=== PATIENT | female | born 1990 | race Caucasian/White ===

== ENCOUNTER 2019-10-13 05:26 | Inpatient (IN) | payer BC ==
[2019-10-13] MEDS ORDERED: Misoprostol 400 MCG (4 X 100 MCG TAB) RECTAL PRN ×2 (09:18→09:23)
[2019-10-13] MEDS ORDERED: Sodium Chloride 0.9% 10 ML Syringe FLUSH PRN ×2 (09:18→09:26)
[2019-10-13] MEDS ORDERED: Acetaminophen 325 MG Tab PO PRN ×2 (09:18→09:23)
[2019-10-13] MEDS ORDERED: Lidocaine 1% 30 ML SDV INJECT PRN (09:18)
[2019-10-13] MEDS ORDERED: Carboprost Tromethamine 250 MCG/1 ML Amp IM PRN ×2 (09:18→09:23)
[2019-10-13] MEDS ORDERED: Ondansetron 4 MG/2 ML SDV IV PRN (09:18)
[2019-10-13] MEDS ORDERED: Methylergonovine 0.2 MG/1 ML Amp IM PRN (09:18)
[2019-10-13] MEDS ORDERED: Lactated Ringers 500 ML IV ONE (09:18)
[2019-10-13] MEDS ORDERED: Tranexamic Acid 1,000 MG in Sodium Chloride 0.9% 100 ML IV PRN ×2 (09:18→09:23)
[2019-10-13] MEDS ORDERED: Benzocaine/Menthol 20%-0.5% Spray 56 GM Canister TOP PRN (09:23)
[2019-10-13] MEDS ORDERED: Docusate Sodium 100 MG Cap PO PRN (09:23)
[2019-10-13] MEDS ORDERED: Simethicone 80 MG Tab.Chew PO PRN (09:23)
[2019-10-13] MEDS ORDERED: Zolpidem 5 MG Tab PO PRN (09:23)
[2019-10-13] MEDS ORDERED: Oxytocin 10 Units/1 ML SDV IM PRN (09:23)
[2019-10-13] MEDS: Lactated Ringers 1,000 ML IV SCH ×2 (10:05→11:50)
[2019-10-13] MEDS ORDERED: fentaNYL 100 MCG/2 ML SDV ONE (11:37)
[2019-10-13] MEDS ORDERED: EPINEPHrine 1 MG/1 ML Amp ONE (11:38)
[2019-10-13] MEDS ORDERED: Sodium Bicarbonate 4.2% 2.5 MEQ/5 ML SDV ONE (11:38)
--- NOTE | 2019-10-13 11:53 | HP ---
CHIEF COMPLAINT: "I think I am in labor. " HISTORY OF PRESENT ILLNESS: Ms. Piña is a 29-year-old 4, para 2-1-0- 3 female; last menstrual period unsure; EDC 10/23/2019; EGA 38-4/7th weeks gestation which is consistent with a 9-week ultrasound. She reported to Labor and Delivery with increasing force and frequency of contractions. On admission, she was noted to be 3 cm dilated and then after being watched, she did change to 4 to 5 cm, 70% effaced, -2 station. She was then taken to Labor and Delivery for admission and artificial rupture of membranes occurred with clear fluid noted. She had not had any issues in the . She denies any nausea, vomiting, or diarrhea. No fever or chills. No hematochezia, hematemesis, or hematuria. No dysuria, frequency, or urgency with urination. No leg pain, leg edema, or severe abdominal pain. She is having regular contractions every 4 to 5 minutes apart. PAST MEDICAL HISTORY: Positive for cholecystitis, previous delivery. She denies any heart disease, hypertension, diabetes, seizure disorder, thyroid disorder, thromboembolic disease, breast lesions, lung issues, kidney disease, or history of blood transfusions. FAMILY HISTORY: Positive for dementia, twins. No hypertension, heart disease, diabetes, seizure disorder, thyroid disorder, or lung problems. SOCIAL HISTORY: The patient is single. She has a significant other who is involved. She has worked for the [employer] She denies any tobacco use, alcohol use, or illicit drug use. She feels safe at home. No domestic violence issues. MEDICATIONS: vitamins with iron. OBSTETRICAL HISTORY: On 09/10/2009, delivered a 7 pounds 4 ounces female infant via normal spontaneous vaginal delivery at 41 weeks gestation. On 07/05/2011, delivery of 5 pounds 12 ounces female via normal spontaneous vaginal delivery at 36 weeks gestation. On 08/14/2018, delivery of an 8 pounds 6 ounces male via normal spontaneous vaginal delivery at 40-4/7 weeks gestation. PAST SURGICAL HISTORY: None. ALLERGIES: No known drug allergies. REVIEW OF SYSTEMS: All pertinent positive and negative review of systems per HPI. All other systems were reviewed negative. A 10-point review of systems discussed with the patient. She has no issues. LABORATORY DATA: Blood type A-negative. Antibody screen negative. Rubella immune. RPR nonreactive. Hepatitis B surface antigen nonreactive. HIV nonreactive. TSH normal. Hepatitis C antibody nonreactive. Group B strep vaginal culture negative. OBJECTIVE: General: Well-developed, well-nourished female in no acute distress. Vital Signs: Stable. Afebrile. HEENT: Unremarkable. Neck: Supple, without adenopathy. No thyromegaly. Lungs: Clear to auscultation. No wheezing, rhonchi, or rales noted. Cardiovascular: Regular rate and rhythm without murmurs. Abdomen: Soft, gravid, and nontender. Fundal height 38 cm. heart tones 130s to 140s. Contractions every 4 to 5 minutes apart. Category 1 strip. Back: No CVA tenderness. : Cervix 4 to 5 cm dilated, 70% effaced, -2 station, vertex presentation. Bulging bag of reyes. Artificial rupture of membranes occurred with clear fluid noted. Extremities: No edema, erythema, or tenderness noted. No clonus. DTRs are 2+/4 in all areas. ASSESSMENT: 1. 38-4/7 weeks intrauterine . 2. Active labor. 3. Artificial rupture membranes with clear fluid. 4. A-negative blood type. 5. History of cholecystitis in . PLAN: 1. Expect vaginal delivery. 2. Patient desires intrathecal anesthesia. 3. All questions answered. [facility] /[id number] MTDD
--- NOTE | 2019-10-13 11:57 | PCM.PNLD ---
Labor Progress Note - VS & Meds Vital Signs: Last Vital Signs Temp 98.8 F 10/13/19 07:50 Pulse 87 10/13/19 07:50 Resp 16 10/13/19 07:50 BP 129/75 10/13/19 07:50 Pulse Ox 95 10/13/19 07:50 Active Medications: Current Medications Acetaminophen (Tylenol) 650 mg PO Q4H PRN PRN Reason: Pain (Mild 1-3) and fever Acetaminophen (Tylenol) 650 mg PO Q6H PRN PRN Reason: mild pain or fever Benzocaine/Menthol (Dermoplast Pain Relief [place]) 0 gm TOP Q4H PRN PRN Reason: Perineal comfort measures Carboprost Tromethamine (Hemabate Ds) 250 mcg IM ASDIRECTED PRN PRN Reason: HEMORRHAGE Carboprost Tromethamine (Hemabate Ds) 250 mcg IM ASDIRECTED PRN PRN Reason: Excessive vaginal bleeding Docusate Sodium (Colace) 100 mg PO BID PRN PRN Reason: Constipation Ferrous Sulfate (Ferrous Sulfate) 325 mg PO WITHBREAKFAST OMAR Lactated Ringer's (Ringers, Lactated) 500 mls @ 125 mls/hr IV .BOLUS ONE Stop: 10/13/19 13:17 Lactated Ringer's (Ringers, Lactated) 1,000 mls @ 125 mls/hr IV ASDIRECTED OMAR Last Admin: 10/13/19 10:05 Dose: 125 mls/hr Oxytocin/Sodium Chloride (Pitocin In Ns 30 Unit/500 Ml) 30 unit in 500 mls @ 2 mls/hr IV TITRATE OMAR; Protocol Tranexamic Acid 1,000 mg/ (Sodium Chloride) 110 mls @ 660 mls/hr IV ONETIME PRN PRN Reason: Bleeding Ibuprofen (Motrin) 800 mg PO Q8H PRN PRN Reason: Mild Pain or Fever Lidocaine HCl (Xylocaine-Mpf 1%) 30 ml INJECT ASDIRECTED PRN PRN Reason: Perineal Repair Methylergonovine Maleate (Methergine) 0.2 mg IM ASDIRECTED PRN PRN Reason: Hemorrhage Misoprostol (Cytotec) 800 mcg RECTAL ASDIRECTED PRN PRN Reason: Hemorrhage Misoprostol (Cytotec) 800 mcg RECTAL ONETIME PRN PRN Reason: Hemorrhage Ondansetron HCl (Zofran) 4 mg IV Q4H PRN PRN Reason: Nausea/Vomiting Oxytocin (Pitocin) 10 unit IM ONETIME PRN PRN Reason: Bleeding Prenat Multivit/[place]/Iron/Folic Ac ( Plus Iron) 1 each PO DAILY OMAR Prenat Multivit/[place]/Iron/Folic Ac ( Plus Iron) 1 each PO DAILY OMAR Simethicone (Simethicone) 80 mg PO Q4H PRN PRN Reason: Gas Sodium Chloride (Saline Flush) 10 ml FLUSH ASDIRECTED PRN PRN Reason: Keep Vein Open Zolpidem Tartrate (Ambien) 5 mg PO BEDTIME PRN PRN Reason: Insomnia Discontinued Medications Epinephrine HCl (Adrenalin) Confirm Administered Dose 1 mg .ROUTE .STK-MED ONE Stop: 10/13/19 11:39 Fentanyl (Sublimaze) Confirm Administered Dose 100 mcg .ROUTE .STK-MED ONE Stop: 10/13/19 11:38 Ferrous Sulfate (Ferrous Sulfate) 325 mg PO DAILY [facility] Tranexamic Acid 1,000 mg/ (Sodium Chloride) 110 mls @ 660 mls/hr IV ONETIME PRN PRN Reason: Bleeding Sodium Bicarbonate (Sodium Bicarbonate 4.2%) Confirm Administered Dose 2.5 meq .ROUTE .STK-MED ONE Stop: 10/13/19 11:39 Sodium Chloride (Saline Flush) 10 ml FLUSH ASDIRECTED PRN PRN Reason: Keep Vein Open Sufentanil Citrate (Sufenta) Confirm Administered Dose 50 mcg .ROUTE .STK-MED ONE Stop: 10/13/19 11:39 - Uterine Contractions Uterine Monitoring Mode: IUPC Contraction Frequency (min): 5-6 Contraction Duration (sec): 90-120 Contraction Intensity: Moderate Uterine Resting Tone: Soft - Monitoring Monitor Mode: Spiral Electrode Heart Rate (FHR) Baseline: 140 (Variable decelerations) Heart Rate (FHR) Variability: Moderate (6-25 bmp) Accelerations: Present, 15x15 Decelerations: Variable, Recurrent (>50% x 20 min) - Vaginal Exam Dilation (cm): 5 Effacement (Percent): 80 Station: -2 Cervical Position: Midposition (IUPC placed and starting Amnioinfusion with 400 mL bolus of normal saline then 100 mL per hour maintainence) Sterile Vaginal Exam Performed By: Romario Mattie - Labor Progress (Free Text) Labor Progress: Patient tolerating contractions getting stronger and more uncomfortable. Desires intrathecal. Patient having FHT's in 140's with variable decel's. No nausea, vomiting or diarrhea. Amnioinfusion with normal saline to be given 400 mL bolus then 100mL per hour maintainence. Pitocin IV augmentation to be started. All questions answered.
--- NOTE | 2019-10-13 12:03 | PCM.SN ---
- Free Text/Narrative Note: Intrathecal, sitting position, sterile prep and drape. 1% lidocaine w bicarb for skinwheal to L2 L3 interspace, introducer, 24 ga pencan x 1. Pos CSF, neg heme, neg parasthesia. 15 mcg pf sufenta, 35 mcg pf fentanyl, 0.4 ml pf ns, 0.1 ml pf 1:1000 epi, and 6 mg of o.75% pf bupivacaine injected after CSF aspiration. Pt to L lateral position. Procedure time 1130 to 1200
[2019-10-13] MEDS: Oxytocin/Normal Saline 30 UNIT/500 ML BAG IV SCH ×2 (12:30→13:55)
--- NOTE | 2019-10-13 12:42 | PCM.PNLD ---
Labor Progress Note - VS & Meds Vital Signs: Last Vital Signs Temp 98.8 F 10/13/19 07:50 Pulse 87 10/13/19 07:50 Resp 16 10/13/19 07:50 BP 129/75 10/13/19 07:50 Pulse Ox 95 10/13/19 07:50 Active Medications: Current Medications Acetaminophen (Tylenol) 650 mg PO Q4H PRN PRN Reason: Pain (Mild 1-3) and fever Acetaminophen (Tylenol) 650 mg PO Q6H PRN PRN Reason: mild pain or fever Benzocaine/Menthol (Dermoplast Pain Relief [place]) 0 gm TOP Q4H PRN PRN Reason: Perineal comfort measures Carboprost Tromethamine (Hemabate Ds) 250 mcg IM ASDIRECTED PRN PRN Reason: HEMORRHAGE Carboprost Tromethamine (Hemabate Ds) 250 mcg IM ASDIRECTED PRN PRN Reason: Excessive vaginal bleeding Docusate Sodium (Colace) 100 mg PO BID PRN PRN Reason: Constipation Ferrous Sulfate (Ferrous Sulfate) 325 mg PO WITHBREAKFAST OMAR Lactated Ringer's (Ringers, Lactated) 500 mls @ 125 mls/hr IV .BOLUS ONE Stop: 10/13/19 13:17 Lactated Ringer's (Ringers, Lactated) 1,000 mls @ 125 mls/hr IV ASDIRECTED OMAR Last Admin: 10/13/19 10:05 Dose: 125 mls/hr Oxytocin/Sodium Chloride (Pitocin In Ns 30 Unit/500 Ml) 30 unit in 500 mls @ 2 mls/hr IV TITRATE OMAR; Protocol Tranexamic Acid 1,000 mg/ (Sodium Chloride) 110 mls @ 660 mls/hr IV ONETIME PRN PRN Reason: Bleeding Ibuprofen (Motrin) 800 mg PO Q8H PRN PRN Reason: Mild Pain or Fever Lidocaine HCl (Xylocaine-Mpf 1%) 30 ml INJECT ASDIRECTED PRN PRN Reason: Perineal Repair Methylergonovine Maleate (Methergine) 0.2 mg IM ASDIRECTED PRN PRN Reason: Hemorrhage Misoprostol (Cytotec) 800 mcg RECTAL ASDIRECTED PRN PRN Reason: Hemorrhage Misoprostol (Cytotec) 800 mcg RECTAL ONETIME PRN PRN Reason: Hemorrhage Ondansetron HCl (Zofran) 4 mg IV Q4H PRN PRN Reason: Nausea/Vomiting Oxytocin (Pitocin) 10 unit IM ONETIME PRN PRN Reason: Bleeding Prenat Multivit/[place]/Iron/Folic Ac ( Plus Iron) 1 each PO DAILY OMAR Prenat Multivit/[place]/Iron/Folic Ac ( Plus Iron) 1 each PO DAILY OMAR Simethicone (Simethicone) 80 mg PO Q4H PRN PRN Reason: Gas Sodium Chloride (Saline Flush) 10 ml FLUSH ASDIRECTED PRN PRN Reason: Keep Vein Open Zolpidem Tartrate (Ambien) 5 mg PO BEDTIME PRN PRN Reason: Insomnia Discontinued Medications Epinephrine HCl (Adrenalin) Confirm Administered Dose 1 mg .ROUTE .STK-MED ONE Stop: 10/13/19 11:39 Fentanyl (Sublimaze) Confirm Administered Dose 100 mcg .ROUTE .STK-MED ONE Stop: 10/13/19 11:38 Ferrous Sulfate (Ferrous Sulfate) 325 mg PO DAILY [facility] Tranexamic Acid 1,000 mg/ (Sodium Chloride) 110 mls @ 660 mls/hr IV ONETIME PRN PRN Reason: Bleeding Sodium Bicarbonate (Sodium Bicarbonate 4.2%) Confirm Administered Dose 2.5 meq .ROUTE .STK-MED ONE Stop: 10/13/19 11:39 Sodium Chloride (Saline Flush) 10 ml FLUSH ASDIRECTED PRN PRN Reason: Keep Vein Open Sufentanil Citrate (Sufenta) Confirm Administered Dose 50 mcg .ROUTE .STK-MED ONE Stop: 10/13/19 11:39 - Uterine Contractions Uterine Monitoring Mode: IUPC Contraction Frequency (min): 5-6 Contraction Duration (sec): 90-120 Contraction Intensity: Moderate Uterine Resting Tone: Soft - Monitoring Monitor Mode: Spiral Electrode Heart Rate (FHR) Baseline: 140 (Variable decelerations) Heart Rate (FHR) Variability: Moderate (6-25 bmp) Accelerations: Present, 15x15 Decelerations: Variable, Prolonged (>2x10 min) Strip Review: Category II - Vaginal Exam Dilation (cm): 5 Effacement (Percent): 80 Station: -2 Cervical Position: Midposition (IUPC placed and starting Amnioinfusion with 400 mL bolus of normal saline then 100 mL per hour maintainence) Sterile Vaginal Exam Performed By: Wilfredo Phelps - Labor Progress (Free Text) Labor Progress: Patient had 4 1/2 minute prolonged deceleration and recovered with Oxygen, Fluids, changing position, and scalp stimulation. No nausea vomiting, diarrhea. Comfortable with Intrathecal anesthesia. VSS Afebrile Cervix- 5 cm/80%/-2 FSE and IUPC in place. Normal saline amnioinfusion running 100 mL per hour. Continue watching closely IV Pitocin for augmentation once hearttones back to Category 1 strip.
--- NOTE | 2019-10-13 13:26 | PCM.OPNOTE ---
- General Post-Op/Procedure Note Date of Surgery/Procedure: 10/13/19 (38 4/7 week IUP) Operative Procedure(s): Low Vacuum Assisted Vaginal Delivery Findings: Vaginal Delivery OA of a Viable femaleinfant Weight- 7lbs 10 oz Length- 20 1/2 's 3 at 1 min and 8 at 5 min. Tight short nuchal cord with 3 vessels. Intact perineum Pre Op Diagnosis: 38 4/7 week IUP. Active labor. Artificial rupture of membranes. Pitocin augmentation. intolerance to labor Post-Op Diagnosis: 38 4/7 week IUP. Active labor. Artificial rupture of membranes. Pitocin augmentation. intolerance to labor. Low vacuum assisted vaginal delivery. Tight short nuchal cord X 1. Viable female over intact perineum Anesthesia Technique: Regional Block (Intrathecal) Primary Surgeon: Wilfredo Phelps Anesthesia Provider: Khanh Oconnell EBL in mLs: 300 Condition: Good Free Text/Narrative:: Patient is a 29 y.o. 4 Para 2-1-0-3 female at 38 4/7 weeks gestation who reported to labor and delivery with increasing force and frequency of contractions. She was 3 cm then once at 4-5 cm she was admitted. AROM Clear fluid, Intrathecal anesthesia for pain. Recurrent variable decelerations so FSE, IUPC and Normal saline amnioinfusion started. She changed to 8 cm and had prolonged decelerations down to the 50's to 70's at a + 2 station so a [place]wi vacuum was placed. She pushed twice with one pull of the vacuum the head was OP and restituted to OA no pop off's the head was delivered over a intact perineum. The cord was short tightly around the neck X 1. The viable female was delivered over an intact perineum. Weight 7 lbs 10 oz, Length- 20 1/2 inches 's- 3 and 8 at 1 and 5 minutes respectively. The cord was cut and the infant handed off to the nurses in attendance then Dr. Lane was present. The patient recovered without issues. Cord blood obtained the placenta delivered by simple expression intact.
[2019-10-13] MEDS: Ibuprofen 800 MG Tab PO PRN (16:28)
[2019-10-14] MEDS: Ibuprofen 800 MG Tab PO PRN ×2 (01:15→08:52)
--- NOTE | 2019-10-14 04:43 | PCM.PNPP ---
- General Info Date of Service: 10/14/19 (PPD # 1 S/P Vacuum assisted vaginal delivery) Functional Status: Reports: Pain Controlled, Tolerating Diet, Ambulating, Urinating - Review of Systems General: Reports: No Symptoms HEENT: Reports: No Symptoms Pulmonary: Reports: No Symptoms Cardiovascular: Reports: No Symptoms Gastrointestinal: Reports: No Symptoms Genitourinary: Reports: No Symptoms Musculoskeletal: Reports: No Symptoms Skin: Reports: No Symptoms Neurological: Reports: No Symptoms Psychiatric: Reports: No Symptoms - General Info Date of Service: 10/14/19 (PPS # 1 S/P Vacuum assisted vaginal delivery) - Patient Data Vital Signs - Most Recent: Last Vital Signs Temp 98.7 F 10/13/19 20:00 Pulse 78 10/13/19 20:00 Resp 16 10/13/19 20:00 BP 114/60 10/13/19 20:00 Pulse Ox 97 10/13/19 12:30 Weight - Most Recent: 213 lb I&O - Last 24 Hours: Intake & Output 10/13/19 10/13/19 10/14/19 14:59 22:59 06:59 Intake Total 1500 1100 Balance 1500 1100 Lab Results - Last 24 Hours: Laboratory Results - last 24 hr 10/13/19 Range/Units 09:28 WBC 9.5 (5.0-10.0) 10^3/uL RBC 3.88 L (4.2-5.4) 10^6/uL Hgb 12.2 (12.0-16.0) g/dL Hct 35.9 L (37.0-47.0) % MCV 92.5 (80-100) fL MCH 31.4 (27.0-34.0) pg MCHC 34.0 (33.0-35.0) g/dL Plt Count 174 D (150-450) 10^3/uL Neut % (Auto) 72.9 (42.2-75.2) % Lymph % (Auto) 20.3 L (20.5-50.1) % [place] % (Auto) 5.9 (2-8) % Eos % (Auto) 0.7 L (1.0-3.0) % Baso % (Auto) 0.2 (0.0-1.0) % Med Orders - Current: Current Medications Acetaminophen (Tylenol) 650 mg PO Q4H PRN PRN Reason: Pain (Mild 1-3) and fever Acetaminophen (Tylenol) 650 mg PO Q6H PRN PRN Reason: mild pain or fever Benzocaine/Menthol (Dermoplast Pain Relief [place]) 0 gm TOP Q4H PRN PRN Reason: Perineal comfort measures Last Admin: 10/13/19 16:29 Dose: 1 spray Carboprost Tromethamine (Hemabate Ds) 250 mcg IM ASDIRECTED PRN PRN Reason: HEMORRHAGE Carboprost Tromethamine (Hemabate Ds) 250 mcg IM ASDIRECTED PRN PRN Reason: Excessive vaginal bleeding Docusate Sodium (Colace) 100 mg PO BID PRN PRN Reason: Constipation Ferrous Sulfate (Ferrous Sulfate) 325 mg PO WITHBREAKFAST [facility] Lactated Ringer's (Ringers, Lactated) 1,000 mls @ 125 mls/hr IV ASDIRECTED OMAR Last Admin: 10/13/19 11:50 Dose: 125 mls/hr Oxytocin/Sodium Chloride (Pitocin In Ns 30 Unit/500 Ml) 30 unit in 500 mls @ 2 mls/hr IV TITRATE [facility]; Protocol Last Titration: 10/13/19 18:45 Dose: 0 mls/hr Tranexamic Acid 1,000 mg/ (Sodium Chloride) 110 mls @ 660 mls/hr IV ONETIME PRN PRN Reason: Bleeding Ibuprofen (Motrin) 800 mg PO Q8H PRN PRN Reason: Mild Pain or Fever Last Admin: 10/14/19 01:15 Dose: 800 mg Lidocaine HCl (Xylocaine-Mpf 1%) 30 ml INJECT ASDIRECTED PRN PRN Reason: Perineal Repair Methylergonovine Maleate (Methergine) 0.2 mg IM ASDIRECTED PRN PRN Reason: Hemorrhage Misoprostol (Cytotec) 800 mcg RECTAL ASDIRECTED PRN PRN Reason: Hemorrhage Misoprostol (Cytotec) 800 mcg RECTAL ONETIME PRN PRN Reason: Hemorrhage Ondansetron HCl (Zofran) 4 mg IV Q4H PRN PRN Reason: Nausea/Vomiting Last Admin: 10/13/19 11:45 Dose: 4 mg Oxytocin (Pitocin) 10 unit IM ONETIME PRN PRN Reason: Bleeding Prenat Multivit/[place]/Iron/Folic Ac ( Plus Iron) 1 each PO DAILY [facility] Prenat Multivit/[place]/Iron/Folic Ac ( Plus Iron) 1 each PO DAILY [facility] Simethicone (Simethicone) 80 mg PO Q4H PRN PRN Reason: Gas Sodium Chloride (Saline Flush) 10 ml FLUSH ASDIRECTED PRN PRN Reason: Keep Vein Open Last Admin: 10/13/19 18:45 Dose: 10 ml Zolpidem Tartrate (Ambien) 5 mg PO BEDTIME PRN PRN Reason: Insomnia Discontinued Medications Epinephrine HCl (Adrenalin) Confirm Administered Dose 1 mg .ROUTE .STK-MED ONE Stop: 10/13/19 11:39 Last Admin: 10/13/19 20:47 Dose: Not Given Fentanyl (Sublimaze) Confirm Administered Dose 100 mcg .ROUTE .STK-MED ONE Stop: 10/13/19 11:38 Last Admin: 10/13/19 20:47 Dose: Not Given Ferrous Sulfate (Ferrous Sulfate) 325 mg PO DAILY [facility] Lactated Ringer's (Ringers, Lactated) 500 mls @ 125 mls/hr IV .BOLUS ONE Stop: 10/13/19 13:17 Last Admin: 10/13/19 20:46 Dose: Not Given Tranexamic Acid 1,000 mg/ (Sodium Chloride) 110 mls @ 660 mls/hr IV ONETIME PRN PRN Reason: Bleeding Sodium Bicarbonate (Sodium Bicarbonate 4.2%) Confirm Administered Dose 2.5 meq .ROUTE .STK-MED ONE Stop: 10/13/19 11:39 Last Admin: 10/13/19 20:47 Dose: Not Given Sodium Chloride (Saline Flush) 10 ml FLUSH ASDIRECTED PRN PRN Reason: Keep Vein Open Sufentanil Citrate (Sufenta) Confirm Administered Dose 50 mcg .ROUTE .STK-MED ONE Stop: 10/13/19 11:39 Last Admin: 10/13/19 20:47 Dose: Not Given - Infant Interaction Disposition, : in Room with Family Interaction: Holding Infant Feeding: Breastfed Infant; Nursed Well Support Person: Significant Other - Recovery Exam Fundal Tone: Firm Fundal Level: 1 Fingerbreadths Above Umbilicus Fundal Placement: Midline Lochia Amount: Small Lochia Color: Rubra/Red Perineum Description: Intact, Minimal Bruising/Swelling Episiotomy/Laceration: None Bladder Status: Voiding Urinary Elimination: Voided - Exam General: Alert, Oriented, Cooperative, No Acute Distress HEENT: Pupils Equal, Pupils Reactive, EOMI, Mucous Membr. Moist/[place] Neck: Supple Lungs: Clear to Auscultation, Normal Respiratory Effort Cardiovascular: Regular Rate, Regular Rhythm, No Murmurs GI/Abdominal Exam: Normal Bowel Sounds, Soft, Non-Tender, No Distention Extremities: Normal Inspection, Normal Range of Motion, Non-Tender, Pedal Edema (1 + edema) Skin: Warm, Dry, Intact Neurological: No New Focal Deficit, Normal Gait, Normal Speech, Normal Tone Psy/Mental Status: Alert, Normal Affect, Normal Mood - Problem List Review Problem List Initiated/Reviewed/Updated: Yes - My Orders Last 24 Hours: My Active Orders 10/13/19 05:47 OB Check [OM.PC] Click To Edit 10/13/19 09:18 Patient Status [ADT] Routine Notify Provider Vital Signs OB [RC] ASDIRECTED POC Labs [RC] ASDIRECTED Up ad Trupti [RC] ASDIRECTED Vital Signs [RC] 08,20 Acetaminophen [Tylenol] 650 mg PO Q4H PRN Carboprost Tromethamine [Hemabate DS] 250 mcg IM ASDIRECTED PRN Lidocaine 1% [Xylocaine-MPF 1%] 30 ml INJECT ASDIRECTED PRN Methylergonovine [Methergine] 0.2 mg IM ASDIRECTED PRN Ondansetron [Zofran] 4 mg IV Q4H PRN miSOPROStoL [Cytotec] 800 mcg RECTAL ASDIRECTED PRN Saline Lock Insert [OM.PC] Routine Resuscitation Status Routine 10/13/19 09:23 Acetaminophen [Tylenol] 650 mg PO Q6H PRN Benzocaine/Menthol [Dermoplast Pain Relief [place]] See Dose Instructions TOP Q4H PRN Carboprost Tromethamine [Hemabate DS] 250 mcg IM ASDIRECTED PRN Docusate Sodium [Colace] 100 mg PO BID PRN Ibuprofen [Motrin] 800 mg PO Q8H PRN Oxytocin [Pitocin] 10 unit IM ONETIME PRN Simethicone 80 mg PO Q4H PRN Tranexamic Acid [Cyklokapron] 1,000 mg Sodium Chloride 0.9% [Normal Saline] 100 ml IV ONETIME Zolpidem [Ambien] 5 mg PO BEDTIME PRN miSOPROStoL [Cytotec] 800 mcg RECTAL ONETIME PRN 10/13/19 09:24 Up ad Trupti [RC] ASDIRECTED Assess Lochia [WOMSER] Per Unit Routine Assess Uterine Involution [WOMSER] Per Unit Routine Breast Pump [WOMSER] Per Unit Routine Ice Therapy [OM.PC] Per Unit Routine Perineal Care [OM.PC] Per Unit Routine Saline Lock Insert [OM.PC] Urgent Sitz Bath [OM.PC] Per Unit Routine 10/13/19 09:26 Sodium Chloride 0.9% [Saline Flush] 10 ml FLUSH ASDIRECTED PRN 10/13/19 09:30 Lactated Ringers [Ringers, Lactated] 1,000 ml IV ASDIRECTED Oxytocin/Normal Saline [Pitocin in NS 30 UNIT/500 ML] 30 unit in 500 ml IV TITRATE 10/14/19 04:37 Ready for Discharge [RC] PER UNIT ROUTINE 10/14/19 05:11 CBC W/O DIFF,HEMOGRAM [HEME] AM 10/14/19 08:00 Ferrous Sulfate 325 mg PO WITHBREAKFAST 10/14/19 09:00 Vit with Ca/FA/Iron [ Plus Iron] 1 each PO DAILY Vit with Ca/FA/Iron [ Plus Iron] 1 each PO DAILY - Assessment Assessment:: PPD # 1 S/P Vacuum assisted vaginal delivery Doing well Ambulating well Tolerating diet well - Plan Plan:: Discharge to home Follow-up with Dr. Lawrence in 6 weeks Ibuprofen 800 mg 1 tab tid po prn pain
--- NOTE | 2019-10-14 05:39 | DISCH ---
INDICATION FOR ADMISSION: Ms. Piña is a 29-year-old, 4, para 2-1-0- 3, female at 38-4/7 weeks' gestation, who reported to Labor and Delivery at [facility] in [place]. On admission, she was 3 cm dilated, nena every 4 to 5 minutes. Then, she changed to 4 to 5 cm and the contractions getting stronger, closer together and more uncomfortable. Artificial rupture of membranes occurred with clear fluid. Once she got uncomfortable, intrathecal anesthesia was obtained, and after this, we started having some repetitive variable decelerations, so a scalp electrode and intrauterine pressure catheter were placed, and I did start an amnioinfusion with normal saline. She then started having some prolonged decelerations as she was dilating, and once she got to 8 cm dilated, the heart tones were dropping to the 50s to 70s with every contraction. So, at this point, a vacuum-assisted vaginal delivery was called and I had her push and she did go to complete after 1 push, so the Kiwi vacuum was placed when the head was at a +2 station. The head was OP and with 2 pushes, 1 pull of the Kiwi vacuum without any pop offs, the head was delivered. There was noted to be a tight nuchal cord. The infant was delivered over an intact perineum. The cord was 3-vessel, and with the cord being around the neck x1, this was reduced after the infant was born. She had a viable female , weighing 7 pounds 10 ounces, 20.5 inches long with score of 3 at 1 minute, 8 at 5 minutes. The cord was clamped and cut. The infant was handed off to the nurses in attendance. Dr. Lane, the physician for the then arrived. Cord blood was obtained. The placenta was then delivered by simple expression intact. The labia, vagina and cervix were inspected and intact. The patient recovered quite well with no complications. She tolerated the rest of her hospital stay quite well. She was afebrile. Vital signs were stable. She tolerated her diet well and ambulated quite well. No complications occurred throughout her entire hospital stay. She was able to breast-feed the baby without any difficulty and the baby did quite well also. She was discharged to home on day #1. LABORATORY AND DIAGNOSTIC STUDIES: 10/13/2019; WBC 9.5, hemoglobin 12.2, hematocrit 35.9, platelet count 174,000. DISCHARGE INSTRUCTIONS: 1. Discharge to home. 2. Followup with Dr. Augusto Washington within the next 6 weeks for her and within the next 1 to 2 weeks for the baby. 3. Motrin 800 mg 1 tablet t.i.d. p.r.n. for pain. 4. Breast pump prescription given to the patient. 5. Discharge instructions including activity, followup, medications, diet and wound care were discussed with the patient. She understands these and is willing to comply with these. 6. No douching, tampons, or intercourse for 6 weeks until healed. DISCHARGE DIAGNOSES: 1. 38-4/7 weeks' intrauterine . 2. Active labor. 3. Artificial rupture of membranes with clear fluid. 4. intolerance to labor. 5. Low vacuum-assisted vaginal delivery of a viable female . 6. Viable female weighing 7 pounds 10 ounces, 20.5 inches long, with score of 3 at 1 minute, 8 at 5 minutes. 7. Tight nuchal cord x1. 8. Intrathecal anesthesia. [facility] /[id number]
[2019-10-14] MEDS ORDERED: Ferrous Sulfate 325 MG Tab PO SCH ×2 (08:00→09:00)
[2019-10-14] MEDS ORDERED: Prenatal Multivitamin with Calcium/Folic Acid/Iron Tab PO SCH ×2 (09:00)
[2019-10-14] MEDS ORDERED: fentaNYL 100 MCG/2 ML SDV ITHECAL ONE (15:49)
[2019-10-14] MEDS ORDERED: Sodium Bicarbonate 4.2% 2.5 MEQ/5 ML SDV ONE (15:49)
[2019-10-14] MEDS ORDERED: EPINEPHrine 1 MG/1 ML Amp ONE (15:49)
== END 2019-10-14 15:50 | disposition home or self-care (01) | DRG 560 ==
LOC: DL.OBCHECK 05:26 → DL.OB 09:18 → UNDOADMOB 09:42 → DL.OB 09:42 → OBSVTOIN 13:20
PROVIDERS: ADMIT Obstetrics & Gynecology; ATTEND Obstetrics & Gynecology
PROC: 10D07Z6 Extraction of Products of Conception, Vacuum, Via Natural or Artificial Opening (ICD-10-PCS; principal; 2019-10-13)
PROC: 10907ZC Drainage of Amniotic Fluid, Therapeutic from Products of Conception, Via Natural or Artificial Opening (ICD-10-PCS; 2019-10-13)
PROC: 3E0R3BZ Introduction of Anesthetic Agent into Spinal Canal, Percutaneous Approach (ICD-10-PCS; 2019-10-13)
PROC: 10H07YZ Insertion of Other Device into Products of Conception, Via Natural or Artificial Opening (ICD-10-PCS; 2019-10-13)
PROC: 3E0E77Z Introduction of Electrolytic and Water Balance Substance into Products of Conception, Via Natural or Artificial Opening (ICD-10-PCS; 2019-10-13)
DX: O69.1XX0 Labor and delivery complicated by cord around neck, with compression, not applicable or unspecified (principal); O76 Abnormality in fetal heart rate and rhythm complicating labor and delivery; Z3A.38 38 weeks gestation of pregnancy; Z37.0 Single live birth
CPT/HCPCS: 36415; 59409; 85025; 85027; A9270-GY; J0171; J2405; J2590; J3010; J7120

== ENCOUNTER 2022-12-10 03:50 | Emergency (ER) | payer BC ==
[2022-12-10] MEDS ORDERED: GI Cocktail Oral Solution 30 ML PO ONE (04:08)
[2022-12-10] MEDS: Sodium Chloride 0.9% 10 ML Syringe FLUSH PRN ×2 (04:28→07:30)
[2022-12-10] MEDS ORDERED: HYDROmorphone 0.5 MG/0.5 ML Syringe IVPUSH ONE ×2 (04:46→05:41)
[2022-12-10 04:56] LABS: ANION GAP 15.6 mEq/L (7-13)
[2022-12-10] MEDS ORDERED: Iopamidol 612 MG/ML 100 ML Bottle IVPUSH ONE (05:42)
[2022-12-10] MEDS ORDERED: Ondansetron 4 MG/2 ML SDV IV ONE (07:18)
[2022-12-10] MEDS ORDERED: HYDROmorphone 1 MG/ML Syringe IVPUSH ONE (07:18)
== END 2022-12-10 07:50 ==
LOC: DL.ED 03:50
DX: K80.00 Calculus of gallbladder with acute cholecystitis without obstruction (principal)
CPT/HCPCS: 36415; 71045; 74177; 80053; 81001; 81025; 82150; 83605; 83690; 83735; 85025; 86140; 96374; 96375; 96376; 99285-25; A9270-GY; J1170; J2405; J3490; Q9967